=== PATIENT | male | born 1980 | race Hispanic/Latino ===

== ENCOUNTER 2016-09-11 00:19 | Emergency (ER) | payer SELFPAY ==
[~2016-09-11] VITALS: Ht 182.9 cm; Wt 113.4 kg
[~2016-09-11 00:19] MED LIST: FLOMAX0.4 MG OR; LORTAB 5 OR
[2016-09-11 01:15] LABS: HEMATOCRIT 41.9 % (39.0-50.0); HEMOGLOBIN 14.5 g/dl (14.0-18.0); IMMATURE GRANULOCYTES 0.4 % (0.0-1.0); MEAN CELL VOLUME 90.7 fL CALC (80.0-100.0); MEAN CORPUSCULAR HGB 31.4 pG CALC (26.0-32.0); MEAN CORPUSCULAR HGB CONC 34.6 g/L CALC (32.0-36.0); NEUT# 9.56 thou/uL (1.82-7.42); RED BLOOD COUNT 4.62 mill/uL (4.70-6.10)
[2016-09-11 01:26] LABS: ALBUMIN 4.5 g/dL (3.2-5.0); ALKALINE PHOSPHATASE 98 u/l (38-126); AMYLASE 41 u/l (30-110); ANION GAP 15 (6-22 (CALC)); BILIRUBIN, TOTAL 0.5 mg/dL (0.0-1.4); BUN 17 mg/dL (9-20); BUN/CREATININE RATIO 11 (12-20 (CALC)); CALCIUM 9.4 mg/dL (8.4-10.2); CARBON DIOXIDE 27 mmol/l (22-30); CHLORIDE 106 mmol/l (95-108); CREATININE 1.5 mg/dL (0.7-1.3); GFR 53 ML/MIN (>=60 (CALC)); GFR FOR AFR.AMER. > 60 ML/MIN (>=60 (CALC)); GLUCOSE 126 mg/dL (75-110); LIPASE 42 u/l (23-300); POTASSIUM 4.1 mmol/l (3.5-5.1); SGOT/AST 35 u/l (17-59); SGPT/ALT 39 u/l (21-72); SODIUM 144 mmol/l (137-146)
[2016-09-11 03:55] LABS: URINE BILIRUBIN - DIPSTICK NEGATIVE (NEGATIVE); URINE BLOOD DIPSTICK LARGE (NEGATIVE); URINE CLARITY CLEAR; URINE COLOR YELLOW; URINE GLUCOSE - DIPSTICK NEGATIVE (NEGATIVE); URINE KETONE NEGATIVE (NEGATIVE); URINE LEUK ESTERASE NEGATIVE (NEGATIVE); URINE NITRITE - DIPSTICK NEGATIVE (Negative); URINE PH 5.5 (4.5-8.0); URINE PROTEIN - DIPSTICK 30 mg/dL (NEG-TRACE); URINE SPECIFIC GRAVITY >=1.030; URINE UROBILINOGEN - DIPSTICK 0.2 E.U./dL (0.2)
[2016-09-11 04:22] LABS: URINE BACTERIA FEW hpf; URINE RBC 25-50 RBC/hpf (0-5); URINE TRANSITIONAL EPI. CELLS RARE hpf; URINE WBC 0-2 WBC/hpf (0-5)
[2016-09-11 04:23] LABS: URINE AMORPH SEDIMENT FEW hpf (NONE-FER)
[2016-09-11 04:24] LABS: URINE MUCUS MODERATE hpf (NONE-FEW)
[2016-09-11] MEDS ORDERED: PERCOCET 5/325M1 TAB PO (05:03)
[2016-09-11 05:10] VITALS: BP 139/86
== END 2016-09-11 05:10 | disposition home or self-care (01) | DRG 694 ==
LOC: ED 00:19
PROVIDERS: Emergency Medicine
DX: N13.2 Hydronephrosis with renal and ureteral calculous obstruction (principal); N28.9 Disorder of kidney and ureter, unspecified; Z87.442 Personal history of urinary calculi

== ENCOUNTER 2016-09-12 04:42 | Emergency (ER) | payer SELFPAY ==
[~2016-09-12] VITALS: Ht 182.9 cm; Wt 82.8 kg
[~2016-09-12 04:42] MED LIST changes: +PERCOCET 5/325M1 TAB PO
[2016-09-12 05:50] VITALS: BP 117/72
== END 2016-09-12 06:05 | disposition home or self-care (01) | DRG 392 ==
LOC: ED 04:42
DX: R10.32 Left lower quadrant pain (principal); N20.0 Calculus of kidney; R11.0 Nausea